=== PATIENT | female | born 1945 | race Caucasian/White ===

== ENCOUNTER 2021-12-07 12:05 | Inpatient (IN) | payer MEDICARE, MEDICAID ==
[~2021-12-07] VITALS: Ht 167.6 cm; Wt 71.0 kg
[2021-12-07] MEDS ORDERED: COREG3.125 MG PO (12:37)
[2021-12-07] MEDS ORDERED: WEEKLY-D1250 MCG PO (12:39)
[2021-12-07] MEDS ORDERED: DOK100 MG PO (12:40)
[2021-12-07] MEDS ORDERED: DULCOLAX10 MG PR (12:40)
[2021-12-07] MEDS ORDERED: LEVOTHYROXINE200 MC2 PO (12:41)
[2021-12-07] MEDS ORDERED: NEURONTIN400 MG PO (12:41)
[2021-12-07] MEDS ORDERED: ZESTRIL30 MG PO (12:42)
[2021-12-07] MEDS ORDERED: MELATONIN1 MG PO (12:42)
[2021-12-07] MEDS ORDERED: MULTI-VITAMIN1 EACH PO (12:43)
--- OUTSIDE RECORDS SUMMARY | 2021-12-07 16:54 | XMS ---
[facility] Notification: KWAME LITTLEJOHN Security Body Die Maker Events No recent Security Events currently on file CRITERIA MET - PDMP CARE PROVIDERS LAMONT BOJORQUEZ Wet Plant Operator Current LEIALNI Lombardi PHONE: [phone] JADEN FINNEGAN Internal Medicine Current PHONE: Unknown ALEJANDRO DOAN Nurse Practitioner Current PHONE: [phone] HETAL PARADA Nurse Practitioner: Family Current PHONE: Unknown ADRIAN NGUYỄN Internal Medicine Current PHONE: [phone] KECIA SKY Nurse Practitioner Current PHONE: [phone] JAYESH CHINCHILLA I. Physician Laboratory Director Current PHONE: Unknown YIMI MACKENZIE Nurse Practitioner Current PHONE: Unknown CHRISTINE SEO Nurse Practitioner Omar FINE PHONE: [phone] MAYRA [facility] Current PHONE: Unknown LINDA [facility] Current PHONE: [phone] MALENA VITAL Physician Laboratory Director Current PHONE: Unknown Dolores has no Care Guidelines for this patient. Ricci VISIT COUNT (12 MO.) 2 [place] [address] TAYA Francis TOTAL 3 NOTE: Visits indicate total known visits. 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 - Adult failure to thrive - Other specified hypothyroidism - weakness - Pressure ulcer of sacral region, stage 3 06/05/2021 12:12 [facility] DIAGNOSES: - Poisoning by unspecified drugs, medicaments and biological substances, accidental (unintentional), initial encounter - UTI INPATIENT VISIT TRACKING (12 MO.) 09/30/2021 11:52 [facility] OR TYPE: Medical Surgical DIAGNOSES: - Adult failure to thrive - 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
--- NOTE | 2021-12-07 18:55 | NUR ---
PT BROUGHT TO CCU, BY MARIBELL LOPEZ. PT UNDRESSED ON ARRIVAL. SMALL SACRAL PRESSURE INJURY NOTED. PT ABLE TO ROLL ON AND OFF BEDPAN, SMALL LOOSE BROWN BM, WITH UNMEASURED VOID. PT'S SON AND BROTHER'S NUMBERS LISTED IN ROOM FOR EMERGENCY CONTACTS. PT CAN BE FORGETFUL, INCREASING DEMENTIA NOTED BY PT'S SON OVER THE PAST SEVERAL MONTHS. 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 PT'S SON ARIANNE AND DAUGHTER IN LAW [employer] CALLED TO CHECK IN, AND WERE ABLE TO SPEAK WITH THEM OVER THE PHONE. PT IS KNOWN TO HAVE SOME ANXIETY, ESPECIALLY IN NEW SITUATIONS. CONCERNED ABOUT NEW AFIB DIAGNOSIS.
--- NOTE | 2021-12-07 19:26 | EKG ---
[facility] [address] [facility] [place], [place] [address] Signed Wide QRS rhythm Left bundle branch block Abnormal ECG No previous ECGs available Confirmed by CARMELA LEOS MD ([id number]) on 12/07/2021 7:25:55 PM Electronically Signed By: CARMELA LEOS MD 12/07/211925 PATIENT NAME: KWAME LITTLEJOHN Electrocardiogram DATE OF : 49 PHYSICIAN: CARMELA LEOS MD REPORT #: [id number] REPORT IS CONFIDENTIAL AND NOT TO BE RELEASED WITHOUT AUTHORIZATION
--- NOTE | 2021-12-07 19:45 | NUR ---
REPORT RECEIVED FROM CELIA HAJI. IN TO DO ASSESSMENT. PT ASKS "WHERE AM I? WHICH BUSINESS AM I AT?'" ASKED PT IF SHE REMEMBERS WHY SHE IS HERE AND SHE REPORTS " I FELT FAINT DURING MY THERAPY AND ALMOST PASSED OUT, SO THEY SENT ME HERE TO CHECK IT OUT". FREQUENTLY ASKS IF SHE CAN GO BACK TO [place]. LUNGS CLEAR AND DIMINSISHED IN BASES. RESPIRATIONS UNLABORED, RR 20, SPO2 93% ON ROOM AIR. HR 100-120'S AFIB. WILL BE GIVING SCHEDULED COREG SOON. PT ASKS TO USE BEDPAN, HAD A LARGE SOFT BOWEL MOVEMENT, CLEANED UP AND POSITIONED ONTO RIGHT SIDE.
--- NOTE | 2021-12-07 20:56 | NUR ---
UPDATE TO DR LEOS WHO STATES SHE WILL ORDER A CHEST XRAY, IMAGING IN TO DO XRAY.
--- NOTE | 2021-12-07 22:15 | NUR ---
PT CALLED OUT, REMINDED HER TO USE HER CALL LIGHT WHICH WAS IN HER LAP. PLACED ON TO BEDPAN, SHE HAD A MED VOID AND STOOL MIX. CONNOR AREA CLEANED UP, BARRIER CREAM APPLIED AND ALLEVYN APPLIED TO WOUND ON COCCYX. PT POSITIONED ONTO LEFT SIDE, CALL LIGHT IN HAND. HR 90-115'S.
--- NOTE | 2021-12-07 23:12 | NUR ---
NOTED THAT PT'S BLOOD PRESSURE READING WAS SIGNIFICANTLY LOWER THAN NORMAL, PRIMARY RN WITH OTHER PT, THIS RN READJUSTED AND RECHECKED BLOOD PRESSURE, BLOOD PRESSURE WAS STILL LOW, PT POSITIONED ON HER BACK FROM A TILTED POSITION AND RECHECKED, BLOOD PRESSURE STILL LOW, MANUAL BLOOD PRESSURE TAKEN, CORRELATING WITH AUTO. PRIMARY RN NOTIFIED OF BLOOD PRESSURE, WILL RECHECK AGAIN AT [id number]
--- NOTE | 2021-12-07 23:34 | NUR ---
DR LEOS NOTIFIED OF LOW BP'S, WILL ORDER IVF.
--- NOTE | 2021-12-08 01:45 | NUR ---
BPS HAVE SLOWLY BEEN COMING UP. PT STARTS TO MOAN, IN TO CHECK ON HER AND SHE STATES HER LEG IS HURTING, ASSISTED WITH REPOSITIONING, SHE ALSO STATES THIS PAIN IS NOT NEW.
--- NOTE | 2021-12-08 02:15 | NUR ---
PT WENT INTO SINUS RHYTHM, RATE DROPPED DOWN TO 60'S. IN TO CHECK ON PT WHO IS SLEEPING, AROUSABLE. DENIES NEEDS AND THEN GOES BACK TO SLEEP.
--- NOTE | 2021-12-08 05:15 | NUR ---
PT HAS BEEN SLEEPING, BPS HAVE CONTINUED TO IMPROVE. ASSESSMENT DONE, PT ASSISTED WITH REPOSITIONING. PT STILL HAS NOT VOIDED SINCE EARLIER IN THE SHIFT. CONT TO MONITOR.
--- NOTE | 2021-12-08 06:30 | NUR ---
PT CHECKED, ATTENDS CHANGED WITH SMALL AMOUNT OF INCONTINENT URINE. WEIGHED FOR 55ML. PT REPOSITIONED ONTO RIGHT SIDE.
--- NOTE | 2021-12-08 06:58 | NUR ---
DR LEOS NOTIFIED OF LOW URINE OUTPUT. ORDER GIVEN FOR 500ML LR BOLUS.
[2021-12-08] MEDS ORDERED: TRAZODONE HCL50 MG PO (08:22)
[2021-12-08] MEDS ORDERED: LISINOPRIL20 MG PO (08:22)
[2021-12-08] MEDS ORDERED: LEVOTHYROXINE150 MCG PO ×2 (08:23→08:24)
--- NOTE | 2021-12-08 08:27 | NUR ---
REPORT REC'D FROM LABEL PRINTER AND CARE OF PATIENT RESUMED. IN PATIENT'S ROOM FOR BREAKFAST, ASSESSMENT, FEDERAL MEDIATOR AND VITALS. PT STATES SHE HAS VOIDED. ATTENDS CHANGED X1 PERSON ASSIST. PT THEN HELPED UP TO CHAIR FOR BREAKFAST. PT IS A HEAVY 1 PERSON ASSIST AND CAN BARELY BARE WEIGHT ON HER LEGS. STAND AND PIVOT INTO CHAIR. PT STATES SHE IS PAINFUL IN HER "BUTT" ONLY, AND THIS IS A CHRONIC CONCERN OF HERS. PILLOW PLACED UNDER PATIENT FOR COMFORT. PT EATS BREAKFAST W/O PROBLEM. LUNGS ARE CLEAR, PT REMAINS ON ROOM AIR. PT REMAINS PALE SHE APPEARED YESTERDAY. PT IS ALERT AND ORIENTED X4. PT CONVERTED TO SINUS AROUND 0215 THIS AM AND REMAINS IN SINUS. IV ROCEPHIN STARTED AFTER 500 ML BOLUS FINISHES. CALL LIGHT WITHIN REACH AND WARM BLANKET PROVIDED. PLAN FOR PATIENT TO D/C TO [place] TODAY. DR. LEOS ALREADY IN TO SEE PATIENT AROUND 0730.
[2021-12-08] MEDS ORDERED: LEVOTHYROXINE25 MCG PO (09:29)
[2021-12-08] MEDS ORDERED: TYLENOL325 MG PO ×2 (09:32)
[2021-12-08] MEDS ORDERED: FLEET ENEMA133 ML PR (09:34)
[2021-12-08] MEDS ORDERED: MIRALAX17 GM PO (09:36)
[2021-12-08] MEDS ORDERED: ONDANSETRON HCL4 MG PO (09:36)
[2021-12-08] MEDS ORDERED: PROVENTIL HFA6.7 GM INH (09:37)
[2021-12-08] MEDS ORDERED: VOLTAREN ARTHRI20 GM TOP ×2 (09:38→09:39)
[2021-12-08] MEDS ORDERED: SENNA8.6 MG PO (09:38)
--- NOTE | 2021-12-08 09:39 | NUR ---
MED REC COMPLETE
[2021-12-08] MEDS ORDERED: TRAZODONE HCL100 MG PO (09:46)
--- NOTE | 2021-12-08 11:49 | NUR ---
PATIENT REMAINS UP IN CHAIR AND NOW LUNCH DELIVERED TO HER. PT WILL D/C BACK TO [place] AT 1500 TODAY VIA THE WHEELCHAIR VAN. ASSESSMENT UNCHANGED FROM PRIOR. PT SALINE LOCKED. PT WANTING TO GET BACK INTO BED AFTER LUNCH.
--- NOTE | 2021-12-08 12:18 | NUR ---
2PA BACK TO BED, PATIENT WAS INCONTINENT OF URINE. NEW BRIEF PROVIDED. CALL LIGHT IN EASY REACH
--- NOTE | 2021-12-08 13:05 | NUR ---
PATIENT RESTING AT THIS TIME AND WATCHING TV IN HER ROOM IN BED. HR IN THE 60s, SINUS WITH A BBB. CONTINUE TO MONITOR.
--- NOTE | 2021-12-08 14:00 | NUR ---
Received call from CCU and wc has not returned from previous transport. Called [facility] and requested they set a chair out for pt, called the wc van and requested they machine operator picker a wc from [facility] for transport.
--- NOTE | 2021-12-08 14:38 | NUR ---
PATIENT IS DRESSED IN PERSONAL CLOTHES. IV REMOVED AND READY FOR DISCHARGE.
--- NOTE | 2021-12-08 15:16 | NUR ---
REPORT CALLED TO [facility] AND ALL QUESTIONS ANSWERED BEST POSSSIBLE.
--- NOTE | 2021-12-08 21:08 | EKG ---
[facility] [address] [place] [address] Signed Atrial fibrillation with rapid ventricular response Left bundle branch block Abnormal ECG When compared with ECG of 07-DEC-2021 12:48, (Unconfirmed) Atrial fibrillation has replaced Wide QRS rhythm Vent. rate has increased BY 54 BPM Confirmed by CARMELA LEOS MD ([id number]) on 12/08/2021 9:08:16 PM Electronically Signed By: CARMEAL LEOS MD 12/08/21 2108 PATIENT NAME: KWAME LITTLEJOHN Electrocardiogram DATE OF : 49 PHYSICIAN: CARMELA LEOS MD REPORT #: [id number] REPORT IS CONFIDENTIAL AND NOT TO BE RELEASED WITHOUT AUTHORIZATION
== END 2021-12-08 14:50 | disposition home or self-care (01) | DRG 309 ==
LOC: ED 12:05 → CCU 17:10
PROVIDERS: ADMIT Internal Medicine; ATTEND Internal Medicine
DX: I48.91 Unspecified atrial fibrillation (principal); E46 Unspecified protein-calorie malnutrition; Z20.822 Contact with and (suspected) exposure to COVID-19; Z68.25 Body mass index [BMI] 25.0-25.9, adult; L89.159 Pressure ulcer of sacral region, unspecified stage; E05.00 Thyrotoxicosis with diffuse goiter without thyrotoxic crisis or storm; E55.9 Vitamin D deficiency, unspecified; D53.9 Nutritional anemia, unspecified; I10 Essential (primary) hypertension; F41.9 Anxiety disorder, unspecified; J45.909 Unspecified asthma, uncomplicated; Z79.899 Other long term (current) drug therapy
CPT/HCPCS: 36415; 71045; 80048; 80053; 81001; 83735; 84443; 84484; 85025; 87088; 87502; 93005; 93010; 96374; 96376; 99285-25; C9803; J0696; J1650; J7040; J7120; U0003

== ENCOUNTER 2022-03-01 19:28 | Emergency (ER) | payer MEDICARE, OTHER ==
[~2022-03-01] VITALS: Ht 167.6 cm; Wt 71.1 kg
[~2022-03-01 19:28] MED LIST: COREG3.125 MG PO; DOK100 MG PO; DULCOLAX10 MG PR; FLEET ENEMA133 ML PR; LEVOTHYROXINE150 MCG PO; LEVOTHYROXINE200 MC2 PO; LEVOTHYROXINE25 MCG PO; LISINOPRIL20 MG PO; MELATONIN1 MG PO; MIRALAX17 GM PO; MULTI-VITAMIN1 EACH PO; NEURONTIN400 MG PO; ONDANSETRON HCL4 MG PO; PROVENTIL HFA6.7 GM INH; SENNA8.6 MG PO; TRAZODONE HCL100 MG PO; TRAZODONE HCL50 MG PO; TYLENOL325 MG PO; VOLTAREN ARTHRI20 GM TOP; WEEKLY-D1250 MCG PO; ZESTRIL30 MG PO
--- OUTSIDE RECORDS SUMMARY | 2022-03-01 19:30 | XMS ---
PreManage Notification: KWAME LITTLEJOHN Security Dipper Fish Events No recent Security Events currently on file CRITERIA MET - JOSE AP CARE PROVIDERS LAMONT BOJORQUEZ Quarter Doper Current LEILANI Lombardi PHONE: [phone] JADEN FINNEGAN Internal Medicine Current PHONE: Unknown Iesha Sanchez Gas Appliance Adjuster/Director Check 11/06/2021-Current PHONE: [phone] ALEJANDRO DOAN Nurse Practitioner Current PHONE: [phone] HETAL PARADA Nurse Practitioner: Family Current PHONE: Unknown ADRIAN NGUYỄN Internal Medicine Current PHONE: [phone] KECIA SKY Nurse Practitioner Current PHONE: [phone] JAYESH CHINCHILLA I. Physician Filter Cloth Maker Current PHONE: Unknown YIMI MACKENZIE Nurse Practitioner Current PHONE: Unknown CHRISTINE SEO Nurse Practitioner Omar RODY PHONE: [phone] MAYRA [facility] Current PHONE: Unknown LINDA [facility] Current PHONE: [phone] MALENA VITAL Physician Filter Cloth Maker Current PHONE: Unknown Dolores has no Care Guidelines for this patient. EAnju. VISIT COUNT (12 MO[address] 2 [facility] 2 TAYA Francis TOTAL 4 NOTE: Visits indicate total known visits. 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 - Adult failure to thrive - Other specified hypothyroidism - weakness - Pressure ulcer of sacral region, stage 3 06/05/2021 12:12 [facility] OR TYPE: Emergency DIAGNOSES: - Poisoning by unspecified drugs, medicaments and biological substances, accidental (unintentional), initial encounter - UTI INPATIENT VISIT TRACKING (12 MO.) 12/07/2021 17:10 [facility] [place] TYPE: Critical Care COMPLAINT: - RAPID ATRIAL FIBRILLATION DIAGNOSES: - Other technician terminal and repeater (current) drug therapy - Contact with and (suspected) exposure to COVID-19 - Unspecified asthma, uncomplicated - Thyrotoxicosis with diffuse goiter without thyrotoxic crisis or storm - Thyrotoxicosis with diffuse goiter without thyrotoxic crisis or storm - Pressure ulcer of sacral region, unspecified stage - Nutritional anemia, unspecified - Vitamin D deficiency, unspecified - Unspecified atrial fibrillation - Essential (primary) hypertension - Contact with and (suspected) exposure to COVID-19 - Vitamin D deficiency, unspecified - Unspecified protein-calorie malnutrition - Other residential (current) drug therapy - Unspecified protein-calorie malnutrition - Anxiety disorder, unspecified - Essential (primary) hypertension - Nutritional anemia, unspecified - Unspecified asthma, uncomplicated - Anxiety disorder, unspecified - Body mass index [BMI] 25.0-25.9, adult - Body mass index [BMI] 25.0-25.9, adult 09/30/2021 11:52 [facility] OR TYPE: Medical Surgical DIAGNOSES: - Adult failure to thrive - 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
== END 2022-03-01 20:40 | disposition home or self-care (01) ==
LOC: ED 19:28
DX: D64.9 Anemia, unspecified (principal); I11.0 Hypertensive heart disease with heart failure; I50.20 Unspecified systolic (congestive) heart failure; J45.909 Unspecified asthma, uncomplicated; E03.9 Hypothyroidism, unspecified
CPT/HCPCS: 36415; 80048; 85025; 85610; 86850; 86900; 86901

== ENCOUNTER 2022-03-04 09:24 | Inpatient (IN) | payer MEDICARE, OTHER ==
[~2022-03-04] VITALS: Ht 167.6 cm; Wt 65.0 kg
--- OUTSIDE RECORDS SUMMARY | 2022-03-04 09:28 | XMS ---
PreManage Notification: KWAME LITTLEJOHN Security Extension Service Specialist Events No recent Security Events currently on file CRITERIA MET - [facility] - [facility] - 2 Visits in 30 Days CARE PROVIDERS LAMONT BOJORQUEZ Barrel Finishernathalia Lombardi PHONE: [phone] JADEN FINNEGAN Internal Medicine Current PHONE: Unknown Iesha Sanchez Lining Presser/Vinyl Cutter 11/06/2021-Current PHONE: [phone] ALEJANDRO DOAN Nurse Practitioner Current PHONE: [phone] HETAL PARADA Nurse Practitioner: Family Current PHONE: Unknown ADRIAN NGUYỄN Internal Medicine Current PHONE: [phone] KECIA SKY Nurse Practitioner Current PHONE: [phone] JAYESH CHINCHILLA I. Physician Hole Filler Current PHONE: Unknown YIMI MACKENZIE Nurse Practitioner Current PHONE: Unknown CHRISTINE SEO Nurse Practitioner Omar RODY PHONE: [phone] MAYRA [facility] Current PHONE: Unknown LINDA [facility] Current PHONE: [phone] MALENA VITAL Physician Hole Filler Current PHONE: Unknown Dolores has no Care Guidelines for this patient. E.D. VISIT COUNT (12 MO.) 2 [facility] 3 TAYA Francis TOTAL 5 NOTE: Visits indicate total known visits. 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 - Adult failure to thrive - Other specified hypothyroidism - weakness - Pressure ulcer of sacral region, stage 3 06/05/2021 12:12 [facility] [place] TYPE: Emergency DIAGNOSES: - Poisoning by unspecified drugs, medicaments and biological substances, accidental (unintentional), initial encounter - UTI INPATIENT VISIT TRACKING (12 MO.) 12/07/2021 17:10 [facility] [place] TYPE: Critical Care COMPLAINT: - RAPID ATRIAL FIBRILLATION DIAGNOSES: - Other nursing home (current) drug therapy - Contact with and [...] unspecified - Unspecified protein-calorie malnutrition - Other local company intermodal truck driver (current) drug therapy - Unspecified protein-calorie malnutrition - Anxiety disorder, unspecified - Essential (primary) hypertension - Nutritional anemia, unspecified - Unspecified asthma, uncomplicated - Anxiety disorder, unspecified - Body mass index [BMI] 25.0-25.9, adult - Body mass index [BMI] 25.0-25.9, adult 09/30/2021 11:52 [facility] OR TYPE: Medical Surgical DIAGNOSES: - Adult failure to thrive - 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
--- NOTE | 2022-03-04 17:30 | NUR ---
PT ARRIVES TO MS FLOOR VIA STRETCHER. PT AAO, DENIES PAIN OR COMPLAINTS AT THIS TIME.PT ORIENTED TO ROOM AND CALL LIGHT. DINNER PROVIDED. VS STABLE.
--- NOTE | 2022-03-04 18:06 | NUR ---
Spoke with pt and she states she resides at [facility]. She does not walk. Per notes pt had syncopal episode and had 3 chest compressions. Pt denies c/o. States this has happened in the past andshe wants to return to [place] on discharge.
--- NOTE | 2022-03-04 19:25 | NUR ---
bedside report from Hollie Smith RN - pt denies needs, call light in reach - tele 6 HR 66 - pt states she has not walked in over 20 yrs and her syncope at [facility] was while sitting in chair, with no exertion. She reports using a WC and has no idea why she is unable to ambulate since her 50's - not really sure what happened to her - she just started feeling weak one day and falling and then stopped walking. RN will cont. to follow.
--- NOTE | 2022-03-04 21:01 | NUR ---
VS COLLECTED AND STABLE, pt REMAINS ON RA. PRIMARY RN IN ROOM FOR MED PASS. FRESH WATER PROVIDED, CALL LIGHT IN REACH.
--- NOTE | 2022-03-04 21:30 | NUR ---
PT ROLLED SIDE TO SIDE TO REMOVE OFF OF ER LINEN AND CHANGE WET ATTENDS, SMEAR OF BM NOTED, CLEANED CONNOR AREA - STRAITENED LINENS - ATTENDS PLACED - ALL SKIN INTACT, PREVIOUS WOUND HEALED ON COXYXX. PURE WICK EDUCATED TO PT AND PLACED. PT NOT ABLE TO MOVE LEFT LEG AND ARM WELL, RIGHT IS STRONGER BUT BOTH WEAK - PT DOES NOT WALK AT BASELINE IN WC FOR LAST 20 YEARS PER REPORT FOR UNKNOWN CAUSE -
--- NOTE | 2022-03-04 22:13 | NUR ---
RAPID RESPONSE CALLED BY CCU RAISSA DEAL AFTER TELE SHOWED HR SINUS AMBIKA WITH LOW 23 HR. COAL OR ORE CONTROLLER GISSEL HAJI, AND KP YDE RESPONDED - PT SOMULENT, RESPONDS TO STIMULI- TEAM IN ROOM, PATRICIA HAJI, SAMIRA COAL OR ORE CONTROLLER, KP DYE, DR. LEOS, JAVIER RN, KALPESH RN, LAB, XRAY AND ILEANA RT. 2215 PADS PLACED TO PT CHEST, O2 NC 2L 221 0.5 MG ATROPINE IV PUSH BY GISSEL PER DR. LEOS FOR HR 23, NS 500 ML BOLUS 2217 O.5 MG ATROPINE IV REPEATED 2217 EKG DONE 2217 VITALS HR 73, BP 67/30, O2 100% TEMP 97.7 PT ANSWERS QUESTIONS APPROPRIATELY, DENIES PAIN OR NEEDS, 2220 HR 65, BP 71/36, 100% 2L NC, 2222 LABS DRAWN 2225 BG 101 2226 HR 71 95/44 RESP 20, SAT 100 2LCN 2227 CXR 2229 FLUIDS COMPLEATE 2230 HR 72 106/53, 20 RR, 100% 2L NC 2240 END RAPID RESPONSE - CALLED PT FAMILY TO CONSULT PT SOMULENT, DENIES NEEDS, REASSURED 2300 TRANSFERED PT TO RM 130 CCU REPORT TO ASA HAJI, ALL BELONGINGS SENT INCLUDING A YELLOW NECKLACE. PT FULL CODE.
--- NOTE | 2022-03-04 23:00 | NUR ---
PATIENT ARRIVED TO UNIT VIA HER BED WITH DESKTOP SUPPORT ENGINEER AND MEDSURSindhu RNJOHN. BEDSIDE REPORT RECEIVED. PATIENT IS RESTING WITH EYES CLOSED, OPENS EYES TO HER NAME. REPORTS FEELING TIRED. PATIENT PLACED ON MONITOR. BP CUFF SWITCHED FOR REGULAR SIZE. BP ADEQUATE, HR 60'S. SR WITH BBB. PATIENT IS PALE AND COOL TO THE TOUCH. PACER PADS LEFT IN PLACE. WARM BLANKET PROVIDED. IV SITES WNL X2, SL. BRUSING NOTED IN RIGHT AC SITE; DRAWS BACK BLOOD AND FLUSHES EASILY. PATIENT ON 3L NC; TITRATED TO ROOM AIR. RR 18. LUNG SOUNDS ARE CLEAR. ABD IS SOFT. PURE WICK IN PLACE FOR INCONTINENCE. PATIENT HAS CALL LIGHT IN HAND. ALLOWED PATIENT TO REST.
--- NOTE | 2022-03-05 00:35 | NUR ---
UPDATE GIVEN TO . PATIENT CONTINUES TO REST WITH EYES CLOSED. VS STABLE.
--- NOTE | 2022-03-05 02:48 | NUR ---
PATIENT RESTING WITH EYES CLOSED. RESPONDS TO VERBAL STIMULI. DENIES ANY CONCERNS. REPOSITIONED TO HER RIGHT SIDE. ATTENDS DRY. VS STABLE.
--- NOTE | 2022-03-05 04:00 | NUR ---
PATIENT WOKE EASILY WHEN RN ENTERED ROOM. BP CUFF HAD BEEN REMOVED BY PATIENT AND SHE STATED "I'M DONE WITH THAT". AGREED TO TRY ON HER OTHER ARM. BP SOFTER DUE TO POSITIONING OF PATIENT ON HER RIGHT SIDE AND BP CUFF ON LEFT. PATIENT NOT WANTING TO MOVE AT THIS TIME. URINE NOTED IN SUCTION CONTAINER FROM PURE-WIC. PATIENT DENIES ANY CONCERNS AT THIS TIME. CALL LIGHT IN REACH. PATIENT REQUEST TV REMOTE WHICH WAS PROVIDED.
--- NOTE | 2022-03-05 08:30 | NUR ---
miller rod mill and medications given. Spoke with Dr. Gaytan regarding giving gabapentin and holding blood pressure medication due to paramaters. Patient was sleeping when first arrived in room, but easily woke up and responded appropriately. Patient able to converse, give pertinent history,and follow commands. HR remained in the 60s during assessment. Patient was noted to be pale with poor circulation. Oxygenation > 92%. Patient able to eat breakfast without assistance. Personal belongings and call light within reach and able to use as needed.
[2022-03-05] MEDS ORDERED: HYDRALAZINE HCL25 MG PO (08:39)
[2022-03-05] MEDS ORDERED: LEVOTHYROXINE88 MCG PO (08:41)
--- NOTE | 2022-03-05 08:54 | EKG ---
[facility] [address] [facility] [place], [place] [address] Signed Normal sinus rhythm Left bundle branch block Abnormal ECG No previous ECGs available Confirmed by CARMELA LEOS MD ([id number]) on 03/05/2022 8:54:34 AM Electronically Signed By: CARMELA LEOS MD 03/05/22 0854 PATIENT NAME: KWAME LITTLEJOHN Electrocardiogram DATE OF : 49 PHYSICIAN: CARMELA LEOS MD REPORT #: [id number] REPORT IS CONFIDENTIAL AND NOT TO BE RELEASED WITHOUT AUTHORIZATION
--- NOTE | 2022-03-05 08:55 | EKG ---
[facility] [address] [facility] [place], [place] [address] Signed Normal sinus rhythm Left bundle branch block Abnormal ECG When compared with ECG of 04-MAR-2022 09:23, (Unconfirmed) No significant change was found Confirmed by CARMELA LEOS MD ([id number]) on 03/05/2022 8:55:31 AM Electronically Signed By: CARMELA LEOS MD 03/05/22 0855 PATIENT NAME: KWAME LITTLEJOHN Electrocardiogram DATE OF : 49 PHYSICIAN: CARMELA LEOS MD REPORT #: [id number] REPORT IS CONFIDENTIAL AND NOT TO BE RELEASED WITHOUT AUTHORIZATION
--- NOTE | 2022-03-05 10:15 | NUR ---
Latest blood pressure reading 78/59 with M 64. Multiple readings completed. Patient is asymptomatic, conversing, appropriate, and able to follow commands. Other VS stable. Spoke directly with Dr. Pettit regarding blood pressure. No changes at this time. Otherwise, patient is laying in bed watching tv and denies further needs. All personal items and call light within reach. Will continue to monitor for VS or condition changes.
--- NOTE | 2022-03-05 10:15 | NUR ---
10 AM VITALS CHARTED, RN NOTIFIED OF LOW BP. DR LEOS NOTIFIED ALSO. CALL LIGHT IN EASY REACH.PUREWICK IN PLACE. PATIENT HAS NO OTHER NEEDS AT THIS TIME
--- NOTE | 2022-03-05 12:00 | NUR ---
PATIENT AWAKE IN BED, VITALS CHARTED. PUREWICK CHANGED DURING BEDBATH. LINENS CHANGED. CALL LIGHT INEASY REACH. NO OTHER NEEDS AT THIS TIME
--- NOTE | 2022-03-05 12:36 | NUR ---
Patient currently eating lunch and watching tv. Cardiac records received and Dr. Gaytan reviewed. At this time, patient is a candidate for further cardiac procedures (pacemaker). Per Dr. Gaytan, [facility] is full and patient is not on the formal wait list, but did record patient's information for consideration. Patient HR remains above 60 with lower blood pressures (map > 60). No symptoms noted at this time. All personal items and call light within reach. No further needs at this time.
--- NOTE | 2022-03-05 14:00 | NUR ---
Patient resting comfortably in room, watching tv. Patient repositioned easily. HR 54 at this time, remains asymptomatic. Patient denies any further needs at this time. All personal items and call light within reach.
--- NOTE | 2022-03-05 15:28 | NUR ---
PATIENT SLEEPING IN BED. PUREWICK CANISTER EMPTIED. CALL LIGHT IN EASY REACH
--- NOTE | 2022-03-05 16:13 | NUR ---
Patient resting at bedside comfortbaly. Currently watching tv. HR 53 with no symptoms at this time. Patient able to eat/snack independently and move in bed upon request with assistance. Patient has spoken to several family members on the phone today. Denies any needs at this time. All personal items and call light within reach.
--- NOTE | 2022-03-05 16:29 | NUR ---
THIS RN CONTACTED [facility] PER MD LEOS AND SCREEN PRINTING MACHINE LOADER UNLOADER REQUEST FOR TRANSFER. PER [facility] STAFF THERE IS NO TELETYPE INSTALLER STAFF ON THIS WEEKEND, BUT TO CALL BACK TUESDAY FOR POSSIBLE TRANSFER AT THAT TIME BECAUSE THIS IS A SERVICE THEY PROVIDE. MD LEOS UPDATED.
--- NOTE | 2022-03-05 17:54 | NUR ---
Patient has been awake and ansymptomatic all day. Patient has been able to eat and void using Purewick. HR remains low staying in the 50-60s range. While sleeping, HR will go to lower 50s. Patient is alert, oriented, follows commands, and able to converse appropriately. Current plans are to continue to wait for placement at [facility], however, can call [facility] on Tuesday for possible placement for pacemaker insertion.
--- NOTE | 2022-03-05 18:01 | NUR ---
Patient resting comfortably in bed and watching tv. HR 61 and remains asymptomatic. Patient ate dinner and denies any needs at this time. Personal items and call light within reach.
--- NOTE | 2022-03-05 21:30 | NUR ---
PATIENT PROVIDED WITH EVENING MEDS AND A PM SNACK. PATIENT IS ALERT AND OREITNED. 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 PATIENT DENIED ANY CONCERNS. REQUEST PRN TYLENOL FOR GENERAL ACHES AND PAINS.
--- NOTE | 2022-03-05 22:30 | NUR ---
CONNOR CARE DONE. NEW PURE WIC PLACED. ATTENDS WET FROM SOME LEAKING. NEW ATTENDS IN PLACE. PATIENT POSITIONED WITH PILLOW UNDER RIGHT HIP TO REDUCE DIRECT PRESSURE ON COCCYX. PATIENT TOLERATES WELL. ASSIST TO ROLL FROM SIDE TO SIDE. VS STABLE. PATIENT REPORTS JUST GENERAL PAIN WHICH IS BETTER AFTER SOME PRN TYLENOL. WARM BLANKET PROVIDED. PATIENT HAS YELLOW NECKLACE AT BEDSIDE. REQUEST THIS BE PLACED ON HER WHICH THIS RN ASSISTED WITH. PATIENT DENIED OTHER NEEDS. CALL LIGHT IN REACH.
--- NOTE | 2022-03-06 00:15 | NUR ---
PATIENT APPEARS TO BE RESTING. EYES CLOSED. VS STABLE. CALL LIGHT IN REACH.
--- NOTE | 2022-03-06 02:00 | NUR ---
PATIENT WOKE BREIFLY WITH RN IN ROOM. REPOSITIONED PILLOW TO HER LEFT HIP AND PROVIDED WARM BLANKET. NO OTHER NEEDS AT THIS TIME.VS STABLE. CALL LIGHT IN REACH.
--- NOTE | 2022-03-06 06:24 | NUR ---
PATIENT WOKE EASILY WHEN RN IN ROOM. DENIED ANY CONCERNS. NEW ATTENDS PLACED AND PATIENT REPOSITIONED. VS STABLE.
--- NOTE | 2022-03-06 08:30 | NUR ---
UNDER CUTTER AND MEDICATIONS GIVEN. PATIENT EATING BREAKFAST AND WATCHING TV. PATIENT DENIES PAIN AT THIS TIME EXCEPT WHEN BEING MOVED IN BED FOR REPOSITION. HELD LISINOPRIL AFTER DISCUSSING WITH DR. LEOS DUE TO SLIGHTLY LOWER BP. WILL CONTINUE TO MONITOR VS. PATIENT DENIES ANY FURTHER NEEDS. PERSONAL ITEMS AND CALL LIGHT WITHIN REACH.
--- NOTE | 2022-03-06 10:14 | NUR ---
PATIENT WAS OFFERED TO SIT IN THE CHAIR FOR A WHILE. AT THIS TIME, PATIENT WOULD LIKE TO STAY IN BED, BUT STATED SHE WOULD DO THE CHAIR LATER FOR LUNCH. PATIENT OTHERWISE LAYING IN BED WATCHING TV. PATIENT DENIES NEEDS AT THIS TIME. 5 Ps ADDRESSED.
--- NOTE | 2022-03-06 12:36 | NUR ---
Assisted patient with bed robertson. Patient able to have a BM. Patient repositioned. Patient able to lift legs today and is more helpful with turning. Lissett care completed. All personal items and call light within reach. No further needs at this time.
--- NOTE | 2022-03-06 13:07 | NUR ---
Update from [facility], patient is still waiting to be placed on the wait list. At this time, [facility] is full.
--- NOTE | 2022-03-06 14:13 | NUR ---
Patient resting in bed watching tv. Patient was able to eat lunch without difficulty. Patient denies any needs at this time. Personal items and call light within reach.
--- NOTE | 2022-03-06 16:41 | NUR ---
Patient resting in bed while watching tv. Patient also eating dinner without difficulty or assistance. Patient denies needs at this time. All personal items and call light within reach.
--- NOTE | 2022-03-06 17:50 | NUR ---
Patient has been more active today, helps more with moving, and eating a bit more. HR still remains low in the 50s when sleeping, however, has gotten into the 70s when awake. Patient remains incontinent; however, she did have her first BM today after not having one for 1 week. Raul understands her current plan for pacemaker insertion and is on board, but does need reminding as she is sometimes forgetful.
--- NOTE | 2022-03-06 20:00 | NUR ---
PATIENT RESTING IN BED. WATCHING TV. REQUEST A LUNCH BOX WHICH WAS PROVIDED. VS STABLE.
--- NOTE | 2022-03-06 21:30 | NUR ---
PATIENT PROVIDED WITH SCHEDULED MEDS AND PRN TYLENOL PER REQUEST. PATIENT IS ALERT AND ORIENTED. DENIED ANY CONCERNS. CONNOR CARE DONE AND NEW PURE WICK PLACED. PATIENT ASSISTED TO REPOSITION. VS STABLE. CALL LIGHT IN REACH.
--- NOTE | 2022-03-07 00:15 | NUR ---
PATIENT WATCHING TV, RESTING IN BED. ASSISTED TO REPOSITION IN BED. PATIENT IS ALERT AND ORIENTED. DENIES ANY NEEDS AT THIS TIME. VS STABLE.
--- NOTE | 2022-03-07 02:00 | NUR ---
PATIENT APPEARS TO BE RESTING. EYES CLOSED. LIGHTS DIMMED TO PROMOTE REST. CALL LIGHT IN REACH. VS STABLE.
--- NOTE | 2022-03-07 05:00 | NUR ---
PATIENT RESTING WITH EYES CLOSED. WAKES TO VOICE. DENIES ANY NEEDS. VS STABLE. CALL LIGHT IN REACH.
--- NOTE | 2022-03-07 07:30 | NUR ---
REPORT RECEIVED FROM NIGHT RN - CARE PLAN REVIEWED.
--- NOTE | 2022-03-07 08:03 | NUR ---
RN IN ROOM TO ROUND ON PT - RESTING WITH EYES CLOSED IN BED, RR EVEN AND UNLABORED. VS STABLE. CALL LIGHT IN REACH.
--- NOTE | 2022-03-07 08:20 | NUR ---
RN IN ROOM TO ASSESS PT AND ADMINISTER SCHEDULED MEDS. PT RESTING ASLEEP UPON ENTRY, WAKES EASILY WITH TOUCH. PT DENIES COMPLAINTS AT THIS TIME. DENIES PAIN OR CP/SOB. PT ALERT AND ORIENTED - CONVERSATION APPROPRIATE. VS STABLE, WNL. PT ABLE SWALLOW AM PILLS WITHOUT DIFFICULTY. PT REPOSISTIONED UP IN BED TO EAT BREAKFAST, DENIES NEEDING ASSISTANCE WITH MEAL. CALL LIGHT IN REACH
--- NOTE | 2022-03-07 10:33 | NUR ---
RN IN ROOM TO PROVIDE ORAL CARE AFTER BREAKFAST. 100% MEAL CONSUMED. I/O MEASUREMENT COMPLETE, ADEQUATE URINE OUTPUT. PT DENIES PAIN, REPOSISTIONED TO RIGHT SIDE WITH PILLOWS. PT DENIES FURTHER NEEDS AT THIS TIME. CALL LIGHT AND TABLE IN REACH.
--- NOTE | 2022-03-07 12:10 | NUR ---
RN ROUNDING ON PT - RESTING IN BED WITH EYES CLOSED, RR EVEN AND UNLABORED. CALL LIGHT AT SIDE.
--- NOTE | 2022-03-07 13:00 | NUR ---
RN IN ROOM TO ASSESS PT - PT WATCHING TV IN BED UPON ENTRY, FINISHED EATING LUNCH. PT DENIES PAIN OR ANY COMPLAINTS AT THIS TIME. PT CURIOUS ABOUT STATUS OF [facility] TRANSFER, UPDATED ON NO ETA AT THIS TIME. PT DENIES FURTHER NEEDS, ASSESSMENT UNCHANGED. CALL LIGHT IN REACH. WARM BLANKET PROVIDED PER REQUEST FOR NAP.
--- NOTE | 2022-03-07 14:00 | NUR ---
RN ROUNDING ON PT - RESTING IN BED WITH EYES CLOSED, RR EVEN AND UNLABORED. CALL LIGHT IN REACH.
--- NOTE | 2022-03-07 16:30 | NUR ---
PT SITTING UP IN BED, DENIES NEEDS OR PAIN AT THIS TIME.
--- NOTE | 2022-03-07 17:30 | NUR ---
PT BOOSTED UP IN BED TO SIT UP FOR DINNER. NO REQUESTS AT THIS TIME.
--- NOTE | 2022-03-07 20:00 | NUR ---
PATIENT RESTING WITH EYES CLOSED. VS STABLE. CALL LIGHT IN REACH.
--- NOTE | 2022-03-07 21:30 | NUR ---
PROVIDED PATIENT WITH EVENING MEDS. PRN TYLENOL PER REQUEST FOR RIGHT SHOULDER PAIN. PATIENT'S ATTENDS CHANGED AND NEW PURE WICK IN PLACE. CONNOR CARE DONE. PATIENT TIPPED TO RIGHT HIP TO REDUCE PRESSURE. FRESH ICE WATER AND PM SNACK AVAILABLE. VS STABLE. PATIENT DENIED ANY CONCERNS AT THIS TIME. CALL LIGHT IN REACH.
--- NOTE | 2022-03-08 00:57 | NUR ---
PATIENT APPEARS TO BE RESTING WITH EYES CLOSED. HR 57; SINUS. RR 14. ALLOWED PATIENT TO REST. CALL LIGHT IN REACH.
--- NOTE | 2022-03-08 03:00 | NUR ---
PATIENT APPEARS TO BE RESTING WITH EYES CLOSED. WOKE BREIFLY WHEN SPOKE TO, DENIES ANY NEEDS. REPOSITIONED TO SLIGHTLY LEFT SIDE. PURE WICK IN PLACE AND FUNCTIONAL. HR 50'S, SR. ALLOWED PATIENT TO REST.
--- NOTE | 2022-03-08 06:01 | NUR ---
VS STABLE. PATIENT RESTING WITH EYES CLOSED. WAKES EASILY TO VOICE. ASSISTED TO REPOSITION. CALL LIGHT IN REACH.
[2022-03-08] MEDS ORDERED: MIRTAZAPINE15 MG PO (08:01)
--- NOTE | 2022-03-08 08:01 | NUR ---
COMMUNITY WORKER, MEDICATIONS GIVEN. PATIENT SITTING UP FOR BREAKFAST. PATIENT WAS EDUCATED THAT SHE NEEDS TO BE IN CHAIR FOR LUNCH AND DINNER MEALS TODAY. PATIENT AGREED TO TRY AND MAKE THIS HAPPEN. PATIENT COMPLAINED OF R SHOULDNER PAIN, PRN MEDICATION GIVEN WITH MORNING MEDICATIONS. NO FURTHER COMPLAINTS AT THIS TIME. ALL PERSONAL ITEMS AND CALL LIGHT WITHIN REACH.
--- NOTE | 2022-03-08 09:38 | NUR ---
At 0920, this nurse came into room and found patient to be lethargic and mildly unresponsive. Patient was able to open eyes, but would close them immediately. Little verbal response at this time. Pulses checked manually, positive, but bradycardic, 38, matching monitor reading. Patient noted to be mildy diaphorectic and pale as well. Pupils were also noted to be dilated. This nurse asked RAISSA Blackmon for assistance and a rapid repsonse was called. Lorri HAJI brought in crash cart and administered 1 mg atropine, Paige FITZPATRICK applied NRB mask. Within 1 minute of administration of atropine, pulses became stronger, patient becamse more responsive and began talking stating she was awake. VS taken during event. Patient continues to be monitored and is currently awake, responsive, following commands, conversive, and appropriate. Dr. Gaytan and rapid response team present for event. No order changes at this time. Will continue to monitor patient for any changes.
--- NOTE | 2022-03-08 09:56 | NUR ---
CALLED [facility] TO CHECK ON STATUS OF TRANSFER, TRANSFER CENTER STATES STILL NO BEDS AT THIS TIME. INFORMED DR LEOS, WILL TRY [facility].
--- NOTE | 2022-03-08 10:10 | NUR ---
Patient blood pressures low, 77/50 (M60) and 79/47 (M58). Dr. Gaytan notified and 250 NS bolus added. Will continue to monitor.
--- NOTE | 2022-03-08 10:30 | NUR ---
Received call from transfer center and [facility] is currenty full. anni Macias will discuss next options with Dr. Gaytan.
--- NOTE | 2022-03-08 10:49 | NUR ---
Patient awake, alert, visiting with her grandsons in the room. Defib pads remain on patient. Patient denies needs at this time. Will continue to monitor. All personal items and call light within reach.
--- NOTE | 2022-03-08 11:53 | NUR ---
Colleen Chavarria contacted hospital in [place]. At this time, they may have beds available. Fax sheet sent for review. Hospital to call back with updates on admission possibility. Dr. Pettit notified.
--- NOTE | 2022-03-08 12:10 | NUR ---
Patient currently eating lunch while visiting with family members. Patient continues to be converseive, follows commands, awake and alert. Patient denies needs at this time. All personal items and call light within reach.
--- NOTE | 2022-03-08 14:02 | NUR ---
CALL TO DR LEOS TO REPORT BP'S DROPPED BACK DOWN, LAST BP 74/39, HR 50'S, PT SLEEPING, RR 22. ORDER GIVEN TO GIVE 250ML NS BOLUS NOW.
--- NOTE | 2022-03-08 14:27 | NUR ---
Patient currently laying in bed snacking on her dessert and watching tv. Patient is currently dry and denies any further needs. Repositioned patient for comfort. All personal items and call light within reach. HR 55, no symptoms noted. 2nd bolus of NS completed.
--- NOTE | 2022-03-08 14:28 | NUR ---
PATIENT STILL AWAITING TRANSFER BED FOR PACEMAKER PLACEMENT. PATIENTS FAMILY AND [facility] AWARE OF TRANSFER PLAN. CHART NOTES FAXED TO [facility] FOR UPDATE.
--- NOTE | 2022-03-08 14:49 | NUR ---
Per house vivian Macias, patient is still on hold for [facility] but other facilities are still being called for possible admission. No takers at this time.
--- NOTE | 2022-03-08 16:23 | NUR ---
[facility] in [place] has accepted patient. Transfer paperwork started by anni Macias RN and RAISSA Roblero. [facility] flight to arrive at 1730 for transport. Patient is currently laying in bed watching tv and resting comfortably. Patient understands she will be transferred and is willing. No needs at this time. All personal belongings and call light within reach.
--- NOTE | 2022-03-08 17:45 | NUR ---
Flight arrival at 1735. Report given to flight team. Report also called to [facility] Osborn. Gave report to RAISSA Lemus. All personal items collected and sent with patient. Daughter in law updated with transfer information.
== END 2022-03-08 18:26 | disposition short-term general hospital (02) | DRG 309 ==
LOC: ED 09:24 → MS 09:26 → CCU 22:46
PROVIDERS: ADMIT Internal Medicine; ATTEND Internal Medicine
PROC: 5A12012 Performance of Cardiac Output, Single, Manual (ICD-10-PCS; principal; 2022-03-04)
DX: I49.5 Sick sinus syndrome (principal); I50.22 Chronic systolic (congestive) heart failure; N39.0 Urinary tract infection, site not specified; N17.9 Acute kidney failure, unspecified; Z20.822 Contact with and (suspected) exposure to COVID-19; I44.7 Left bundle-branch block, unspecified; I42.8 Other cardiomyopathies; I11.0 Hypertensive heart disease with heart failure; G47.00 Insomnia, unspecified; F41.9 Anxiety disorder, unspecified; F32.A Depression, unspecified; E03.9 Hypothyroidism, unspecified; D50.9 Iron deficiency anemia, unspecified; G89.4 Chronic pain syndrome; I48.0 Paroxysmal atrial fibrillation; I95.9 Hypotension, unspecified; Z79.899 Other long term (current) drug therapy
CPT/HCPCS: 36415; 51702; 51798; 71045; 80048; 80053; 81001; 83540; 83550; 83735; 84484; 85025; 86140; 87502; 93005; 93010; 94760; 99285-25; A9270; C9803; J0461; J0696; J7030; J7050; J7121; U0003